=== PATIENT | female | born 1995 | race Hispanic/Latino ===

== ENCOUNTER 2020-01-02 20:54 | Inpatient (IN) | payer MEDICAID, OTHER ==
[~2020-01-02] VITALS: Ht 170.2 cm; Wt 61.0 kg
[2020-01-02 21:30] LABS: APPEARANCE,URINE CLOUDY (CLEAR); BILIRUBIN,URINE NEGATIVE (NEGATIVE); COLOR,URINE YELLOW (YELLOW); GLUCOSE, URINE (UA) NEGATIVE (NEGATIVE); KETONES,URINE 5 mg/dL (NEGATIVE); LEUKOCYTE ESTERASE ,URINE LARGE (NEGATIVE); NITRATE,URINE POSITIVE (NEGATIVE); OCCULT BLOOD,URINE TRACE-INTACT (NEGATIVE); PH,URINE 8.5 (5.0-8.0); PROTEIN,URINE 30 mg/dL (NEGATIVE)
[2020-01-02 21:32] LABS: BACTERIA,URINE Many /HPF (None Seen); RBC,URINE 0-1 /HPF (0-1); WBC,URINE >100 /HPF (0-1)
[2020-01-02] MEDS ORDERED: ONDANSETRON HCL 4 MG/2 ML VIAL ONE (21:41)
[2020-01-02] MEDS ORDERED: ACETAMINOPHEN EXTRA STRENGTH 500 MG TABLET ONE (21:41)
[2020-01-02 21:42] LABS: BASOPHILS % (AUTO) 0.4 % (0.0-5.0); EOSINOPHILS % (AUTO) 0.2 % (0.0-8.0); HEMATOCRIT 34.6 % (36-48); LYMPHOCYTES % (AUTO) 18.4 % (21.0-51.0); MEAN CORPUSCULAR HEMOGLOBIN 32.7 pg (27.0-33.0); MEAN CORPUSCULAR HGB CONC 36.7 g/dL (32.0-36.0); MEAN CORPUSCULAR VOLUME 89.2 fL (79-99); MONOCYTES % (AUTO) 6.1 % (3.0-13.0); NEUTROPHILS % (AUTO) 68.7 % (40.0-77.0); PLATELET COUNT (AUTO) 372 K/uL (130-400); RED BLOOD CELL COUNT(AUTO) 3.88 MIL/uL (4.00-5.50); RED CELL DISTRIBUTION WIDTH 11.3 % (11.0-15.5); WHITE BLOOD COUNT (AUTO) 21.9 K/uL (4.8-10.8)
[2020-01-02] MEDS ORDERED: SODIUM CHLORIDE 0.9% 500ML 500 ML IV ONE ×2 (21:42→22:10)
[2020-01-02 22:17] LABS: ALBUMIN 2.7 g/dL (3.5-5.0); BILIRUBIN,TOTAL 0.8 mg/dL (0.2-1.0); CREATININE 1.1 mg/dL (0.5-1.5); TOTAL PROTEIN, SERUM 7.6 g/dL (6.0-8.3)
[2020-01-02 22:18] LABS: POTASSIUM 2.3 mmol/L (3.5-5.1)
[2020-01-02] MEDS ORDERED: SODIUM CHLORIDE 0.9% 1000ML 1,000 ML IV ONE (22:45)
[2020-01-02] MEDS ORDERED: POTASSIUM CHLORIDE 20 MEQ ERTAB PO ONE (22:46)
[2020-01-02] MEDS ORDERED: CEFTRIAXONE SODIUM 2 GM VIAL ONE (22:55)
[2020-01-03] VITALS (7 sets, daily range): BP systolic 112–124; BP diastolic 62–79
[2020-01-03] MEDS ORDERED: POTASSIUM CHLORIDE 20MEQ/100ML 100 ML IV ONE (01:36)
[2020-01-03] MEDS ORDERED: POTASSIUM CHLORIDE 20 MEQ ERTAB PO ONE (01:36)
[2020-01-03] MEDS ORDERED: LIDOCAINE HCL-MPF 1% 2ML VIAL ONE (01:37)
[2020-01-03] MEDS ORDERED: DEXTROSE 5%-LACTATED RINGERS 1,000 ML IV ONE (01:38)
[2020-01-03] MEDS ORDERED: ONDANSETRON HCL 4 MG/2 ML VIAL IVP PRN (05:45)
[2020-01-03] MEDS: DEXTROSE 5%-LACTATED RINGERS 1,000 ML IV SCH ×2 (07:26→17:11)
[2020-01-03] MEDS: SODIUM CHLORIDE 0.9% 1000ML 1,000 ML IV SCH ×2 (14:44→19:00)
[2020-01-03] MEDS: POTASSIUM CHLORIDE 20 MEQ ERTAB PO PRN ×3 (14:45→18:53)
--- NOTE | 2020-01-03 17:40 | NUR ---
RUBIO NOTE/IA UNABLE TO MEET WITH PATIENT IN ROOM, NEXT OF KIN CALLED, MANJINDER WHITE. PER MOTHER IN LAW, PATIENT LIVES WITH FAMILY, IS INDEPENDENT WITH ADLS, NO USE OF DME AND FEELS SAFE TO RETURN HOME ONCE DISCHARGED. Addendum: 01/03/20 at 1741 by SANDRA GAGE RN CM Amended: Links added.
[2020-01-03] MEDS ORDERED: FLU VACC QS2020-21(6MOS UP)/PF 60 MCG/0.5 ML ML IM ONE (19:30)
[2020-01-03] MEDS ORDERED: CEFTRIAXONE SODIUM 1 GM IVP SCH (22:00)
[2020-01-04] MEDS: SODIUM CHLORIDE 0.9% 1000ML 1,000 ML IV SCH ×2 (01:32→09:22)
[2020-01-04 02:56] VITALS: BP 112/62
--- NOTE | 2020-01-04 06:00 | NUR ---
FHT'S 140. PT. DENIED N/V ALL NIGHT AND TOLERATED CLEAR LIQUID DIET. Addendum: 01/04/20 at 0627 by NIKA HERRERA RN RN Amended: Links added.
[2020-01-04 06:33] LABS: BASOPHILS % (AUTO) 0.3 % (0.0-5.0); EOSINOPHILS % (AUTO) 0.5 % (0.0-8.0); HEMATOCRIT 27.7 % (36-48); MEAN CORPUSCULAR HEMOGLOBIN 32.7 pg (27.0-33.0); MEAN CORPUSCULAR VOLUME 93.3 fL (79-99); NEUTROPHILS % (AUTO) 64.4 % (40.0-77.0); PLATELET COUNT (AUTO) 364 K/uL (130-400); RED BLOOD CELL COUNT(AUTO) 2.97 MIL/uL (4.00-5.50); RED CELL DISTRIBUTION WIDTH 11.7 % (11.0-15.5); WHITE BLOOD COUNT (AUTO) 15.7 K/uL (4.8-10.8)
[2020-01-04 06:47] LABS: CREATININE 0.7 mg/dL (0.5-1.5); POTASSIUM 3.3 mmol/L (3.5-5.1)
[2020-01-04 07:18] VITALS: BP 126/77
--- NOTE | 2020-01-04 07:45 | NUR ---
PATIENT ASSESSED AND HEART TONES OBTAINED BY DOPPLER AND WERE 142BPM BELOW UMBILICUS. DENIES ANY FURTHER N/V AND HAS REMAINED AFEBRILE. PIV IS PATENT AND INFUSING NS AT 125CC/HR. DENIES PAIN AND NEGATIVE PATSY'S SIGN BILATERALLY. HAS BEEN TOLERATING CLEAR LIQUIDS WELL.
--- NOTE | 2020-01-04 08:05 | NUR ---
DR. ALCOCER CALLED [facility] ON PATIENT AND C&S FOR ESBL. WILL CALL DR. ALCOCER BACK WHEN CLEARANCE IS OBTAINED FOR GENTAMICIN ORDERED.
--- NOTE | 2020-01-04 08:40 | NUR ---
SPOKE TO GEMMA, PHARMACIST AND INDICATED DOSE OF GENTAMICIN 120MGS WOULD BE SAFE DOSAGE FOR PATIENT AND ORDER WAS PUT IN INDICATED BY DR. ALCOCER. DR. ALCOCER WILL CALL FOR PO MEDS TO BE TAKEN AFTER DISCHARGE.
[2020-01-04] MEDS ORDERED: PHARMACY COMMUNICATION MISC ONE (08:45)
[2020-01-04] MEDS: POTASSIUM CHLORIDE 20 MEQ ERTAB PO PRN ×3 (08:58→12:47)
[2020-01-04] MEDS ORDERED: GENTAMICIN 120 MG IN 100ML NS 100 ML IV SCH (09:00)
--- NOTE | 2020-01-04 09:14 | NUR ---
GENTAMICIN 120MGS RECEIVED FROM PHARMACY AND WAS HUNG AT THIS TIME. PATIENT TOLERATED INFUSION WELL AND WAS INSTRUCTED ON DISCHARGE AFTER LUNCH FOR COMPLETION OF K+ PROTOCOL.
[2020-01-04 11:08] VITALS: BP 122/79
--- NOTE | 2020-01-04 11:15 | NUR ---
DISCHARGE INSTRUCTIONS GIVEN AND PATIENT INSTRUCTED THAT SHE COULD GO ONCE LAST DOSE OF POTASSIUM IS GIVEN AT 1245PM. VERBALIZED UNDERSTANDING. SCRIPT TO BE CALLED TO [facility] IN [place] BY DR. ALCOCER FOR MACROBID. PATIENT REMAINS AFEBRILE.
--- NOTE | 2020-01-04 13:15 | NUR ---
PATIENT WAS TAKEN VIA W/C TO FAMILY VEHICLE IN STABLE CONDITION. PATIENT HAS REMAINED AFEBRILE AND DENIES PAIN OR N/V.
== END 2020-01-04 13:15 | disposition home or self-care (01) | DRG 832 ==
LOC: EDH 20:54 → EDHIP 20:55 → OBSVTOIN 20:55 → WSH 01-03 02:06
PROVIDERS: ADMIT Specialist; ATTEND Specialist
DX: O21.1 Hyperemesis gravidarum with metabolic disturbance (principal); O23.42 Unspecified infection of urinary tract in pregnancy, second trimester; Z20.828 Contact with and (suspected) exposure to other viral communicable diseases; Z3A.22 22 weeks gestation of pregnancy; Z23 Encounter for immunization
CPT/HCPCS: 36415; 76805; 80048; 80053; 81001; 84132; 84702; 85025; 87040; 87077; 87088; 87186; 87426; G0378; J0696; J1580; J2405; J3480; J3490; J7030; J7040; Q2035